=== PATIENT | female | born 1985 | race African-American/Black ===

== ENCOUNTER 2016-08-11 15:36 | Emergency (ER) | payer MEDICAID ==
[~2016-08-11] VITALS: Ht 170.2 cm; Wt 80.0 kg
[~2016-08-11 15:36] MED LIST: ADVA100A; AZIT250T74 PO; CLIN150 PO; MONT10TA2 PO; NAPR-576 PO; PRED20 PO; VIST50CA PO; Z.0.BCPILL
[2016-08-11 15:50] VITALS: BP 143/65; PULSE 68; RESP 14; TEMP 98.1; O2SAT 98
[2016-08-11] MEDS ORDERED: ADVA100A INH (16:20)
[2016-08-11] MEDS ORDERED: MONT10TA2 PO (16:20)
--- NOTE | 2016-08-11 16:47 | PD ---
HPI Chief Complaint: Respiratory Symptoms Time Seen by Provider: 16:43 Travel History International Travel<30 days: No Contact w/Intl Traveler<30days: No Traveled to known affect area: No History of Present Illness HPI 31-year-old female that presents to the ED for evaluation of left-sided chest discomfort with shortness of breath and history of asthma. Per patient about 2 weeks ago she was told by her doctor to discontinue her medications to help with what appears to be some side effects of the medications. Patient is to take Advair, albuterol inhaler and nebulizer. Per patient ever since the change in climate for the past 2 days she's been having some more shortness of breath, wheezing, left sided discomfort. Per patient she is concerned that she might have pneumonia vs her asthma. She denies any radiation of the discomfort. Per patient gets worse with cough. She has no allergies to medication. Denies any history of heart disease. Denies smoking. Denies any abdominal pain. Nausea or vomiting. No fevers chills or sweats. No sick contacts. No recent travel. No allergies to medication. PFSH Past Medical History Asthma: Yes Autoimmune Disease: No Anxiety: No Depression: No Cancer: No Cardiovascular Problems: No Diabetes: No Diminished Hearing: Yes Endocrine: No Genitourinary: No Immune Disorder: No Musculoskeletal: No Neurologic: No Psychiatric: No Reproductive: No Respiratory: Yes (ASTHMA) Thyroid Disease: No ?: Not Past Surgical History Other Surgery: Yes (BREAST BIOPSY) Family History Family Hypercholesterolemia: Yes Social History Alcohol Use: Yes (OCCASIONALLY) Tobacco Use: No Substance Use: Yes (COCAINE,) Allergies-Medications (Allergen,Severity, Reaction): Coded Allergies: No Known Allergies (Verified , 08/11/16) Reported Meds & Prescriptions Reported Meds & Active Scripts Active Reported Singulair (Montelukast Sodium) 10 Mg Tab 10 Mg PO HS Advair Diskus Inh (Fluticasone-Salmeterol Inh) 100-50 Mcg/Blist Aer 1 Puff INH BID Rinse mouth after use. Review of Systems Except as stated in HPI: all other systems reviewed are Neg Physical Exam Narrative GENERAL: SKIN: Warm and dry. HEAD: Atraumatic. Normocephalic. EYES: Pupils equal and round. No scleral icterus. No injection or drainage. ENT: No nasal bleeding or discharge. Mucous membranes pink and moist. Tongue is midline. No blood deviation. TMs are clear with no sign of infection or perforation. No mastoid tenderness. No lymphadenopathy. No meningeal signs noted. NECK: Trachea midline. No JVD. CARDIOVASCULAR: Regular rate and rhythm. No obvious murmurs, history, S4. Chest pain is not reproducible with touch. RESPIRATORY: No accessory muscle use. Clear to auscultation. Breath sounds equal bilaterally. GASTROINTESTINAL: Abdomen soft, non-tender, nondistended. Hepatic and splenic margins not palpable. MUSCULOSKELETAL: Extremities without clubbing, cyanosis, or edema. No obvious deformities. NEUROLOGICAL: Awake and alert. No obvious cranial nerve deficits. Motor grossly within normal limits. Five out of 5 muscle strength in the arms and legs. Normal speech. PSYCHIATRIC: Appropriate mood and affect; insight and judgment normal. Data Data Last Documented VS Vital Signs Date Time Temp Pulse Resp B/P Pulse Ox O2 Delivery O2 Flow Rate FiO2 08/11/16 15:50 98.1 68 14 143/65 98 Orders Chest, Single Ap (08/11/16 ) [facility] Medical Decision Making Medical Screen Exam Complete: Yes Emergency Medical Condition: Yes Medical Record Reviewed: Yes Interpretation(s) CXR negative Differential Diagnosis Asthma versus pneumonia versus pleurisy versus bronchitis Narrative Course 31-year-old female that presents to the ED for evaluation of left-sided chest discomfort with possible asthma. Patient was properly examined and was found to have signs and symptoms which appear to be more consistent with asthma exacerbation versus pneumonia versus pleurisy. Patient was recently discontinued most of her asthma medications by her doctor likely secondary to side effects from medication as patient cannot really tell me why. Vitals are within normal limits. Physical exam is reassuring that she does have some mild wheezing on exam. Recommendations to the chest x-ray to assess any pneumonia. Chest x-ray showed no sign of acute disease. Patient was reassured. On reassessment patient feels improved. Further questioning patient has pain when she takes a deep breath. This is likely pleurisy. I will treat patient with prednisone. Per patient she is going to pick up worker her prescriptions for inhalers as apparent rashes getting some today that were prescribed by her doctor. I will give patient a prescription for azithromycin only to cover for bacterial infection although this appears to be less likely. I recommended to the patient to hold off on the azithromycin unless she develops more cough and runny nose with fevers. She agrees with the plan. She was instructed that if anything worsens she is to come back. All questions were answered to the best of my ability. See ED worsening symptoms. Follow with PCP. Diagnosis Primary Impression: Pleurisy Additional Impression: Asthma Qualified Code: J45.20 - Mild intermittent asthma without complication Patient Instructions: General Instructions Additional Instructions: Motrin and Tylenol for pain and fever. You can use [id number] antihistamine as well as well as Mucinex as needed for runny nose and congestion. Cough drops for cough as needed. Drink plenty of fluids. Follow-up with PCP. See ED for worsening symptoms. Med/Other Pt SpecificInfo: Prescription(s) given Scripts Azithromycin 250 Mg [id number] Mg PO DIRECTED #6 TAB Take 2 tabs (500 mg) on day 1 then 1 tab daily x 4 days. Prov:Darcie Vences MD 08/11/16 Prednisone 20 Mg Tab20 Mg PO BID #10 TAB Prov:Darcie Vences MD 08/11/16 Disposition: 01 DISCHARGE HOME Condition: Stable Yves Farmer Aug 11, 2016 16:47
--- NOTE | 2016-08-11 16:55 | RADRPT ---
EXAM DATE/TIME: 08/11/2016 16:41 [facility] COMPARISON: CHEST SINGLE AP, December 09, 2014, 5:15. INDICATIONS : Chest pain. MEDICAL HISTORY : Asthma SURGICAL HISTORY : Breast biopsy ENCOUNTER: Initial ACUITY: 1 day PAIN SCORE: 0/10 LOCATION: Bilateral chest FINDINGS: A single view of the chest demonstrates the lungs to be symmetrically aerated without evidence of mas s, infiltrate or effusion. The cardiomediastinal contours are unremarkable. Osseous structures are intact. CONCLUSION: No acute disease. Earl Mccoy MD FACR on August 11, 2016 at 16:53 Board Certified Radiologist. This report was verified electronically.
[2016-08-11] MEDS ORDERED: AZIT250T3 PO (17:02)
[2016-08-11] MEDS ORDERED: PRED20 PO (17:02)
== END 2016-08-11 17:23 | disposition home or self-care (01) ==
LOC: NETRI 15:36
DX: J45.20 Mild intermittent asthma, uncomplicated (principal)
CPT/HCPCS: 71010; 99284

== ENCOUNTER 2016-08-18 09:15 | Emergency (ER) | payer MEDICAID ==
[~2016-08-18] VITALS: Ht 170.2 cm; Wt 80.0 kg
[~2016-08-18 09:15] MED LIST changes: -ADVA100A; +ADVA100A INH; +AZIT250T3 PO; -AZIT250T74 PO; -CLIN150 PO; -NAPR-576 PO; -VIST50CA PO; -Z.0.BCPILL
[2016-08-18 09:17] VITALS: BP 160/84; PULSE 82; RESP 20; TEMP 98.1; O2SAT 99
[2016-08-18] MEDS ORDERED: SODIUM CHLORIDE 0.9% FLUSH 5 ML FLUSH IVF PRN (10:00)
[2016-08-18] MEDS ORDERED: SODIUM CHLOR 0.9% 1000 ML INJ 1,000 ML IV ONE (10:00)
--- NOTE | 2016-08-18 10:02 | PD ---
HPI Chief Complaint: Dizziness Time Seen by Provider: 09:51 Travel History International Travel<30 days: No Contact w/Intl Traveler<30days: No Traveled to known affect area: No History of Present Illness HPI 31-year-old female with history of asthma, blindness, here for evaluation of left-sided chest discomfort, headache, and dizziness. Patient was seen here about a week ago for left-sided chest discomfort and was diagnosed with pleurisy , discharged home with a course of prednisone which helped her discomfort. She describes as sharpness/heaviness to her left chest. No history of cardiac disease. No history of DVT or PE. She is also complaining of a headache which she has had for last 2 weeks, states that she usually has headaches, however this one feels slightly different. Headache is associated with lightheadedness. No fevers or chills. No trauma. Pain is gradual in onset, located on her superior scalp, described as a pressure. No neck pain or stiffness. PFSH Past Medical History Asthma: Yes Autoimmune Disease: No Anxiety: No Depression: No Cancer: No Cardiovascular Problems: No Diabetes: No Diminished Hearing: Yes Endocrine: No Genitourinary: No Immune Disorder: No Musculoskeletal: No Neurologic: No Psychiatric: No Reproductive: No Respiratory: Yes (ASTHMA) Pneumonia: Yes (2014) Thyroid Disease: No ?: Unknown LMP: 09/06/15 bc of depo : 1 Para: 0 : 1 Past Surgical History Other Surgery: Yes (BREAST BIOPSY) Family History Family Hypercholesterolemia: Yes Social History Alcohol Use: Yes (OCCASIONALLY) Tobacco Use: No Substance Use: Yes (hx COCAINE,) Allergies-Medications (Allergen,Severity, Reaction): Coded Allergies: No Known Allergies (Verified , 08/11/16) Reported Meds & Prescriptions Reported Meds & Active Scripts Active Azithromycin 250 Mg Tab 250 Mg PO DIRECTED Take 2 tabs (500 mg) on day 1 then 1 tab daily x 4 days. Prednisone 20 Mg Tab 20 Mg PO BID Reported Singulair (Montelukast Sodium) 10 Mg Tab 10 Mg PO HS Advair Diskus Inh (Fluticasone-Salmeterol Inh) 100-50 Mcg/Blist Aer 1 Puff INH BID Rinse mouth after use. Review of Systems Except as stated in HPI: all other systems reviewed are Neg Physical Exam Narrative GENERAL: Pleasant, well-developed, well-nourished, well-appearing, comfortable, no acute distress. SKIN: Warm and dry. No rash. HEAD: Atraumatic. Normocephalic. EYES: No scleral icterus. No injection or drainage. ENT: No nasal bleeding or discharge. Mucous membranes pink and moist. NECK: Trachea midline. No JVD. No nuchal rigidity. CARDIOVASCULAR: Regular rate and rhythm. No murmur appreciated. RESPIRATORY: No accessory muscle use. Clear to auscultation. Breath sounds equal bilaterally. GASTROINTESTINAL: Abdomen soft, non-tender, nondistended. MUSCULOSKELETAL: No obvious deformities. No clubbing. No cyanosis. No edema. NEUROLOGICAL: Awake and alert. No obvious cranial nerve deficits. Motor grossly within normal limits. Normal speech. PSYCHIATRIC: Appropriate mood and affect; insight and judgment normal. Data Data Last Documented VS Vital Signs Date Time Temp Pulse Resp B/P Pulse Ox O2 Delivery O2 Flow Rate FiO2 08/18/16 10:30 98 Room Air 08/18/16 09:17 98.1 82 20 160/84 Orders Complete Blood Count With Diff (08/18/16 09:57) Comprehensive Metabolic Panel (08/18/16 09:57) Act Partial Throm Time (Ptt) (08/18/16 09:57) Prothrombin Time / Inr (Pt) (08/18/16 09:57) Ckmb (Isoenzyme) Profile (08/18/16 09:57) Troponin I (08/18/16 09:57) Urinalysis - C+S If Indicated (08/18/16 09:57) Influenzae A/B Antigen (08/18/16 09:57) Iv Access Insert/Monitor (08/18/16 09:57) Electrocardiogram (08/18/16 09:57) Ecg Monitoring (08/18/16 09:57) Oximetry (08/18/16 09:57) Oxygen Administration (08/18/16 09:57) Chest, Single Ap (08/18/16 09:57) Ct Pulmonary Angiogram (08/18/16 09:57) Sodium Chloride 0.9% Flush (Ns Flush) (08/18/16 10:00) Ct Brain W/O Iv Contrast(Rout) (08/18/16 ) Beta Hcg (Quant/Titer) (08/18/16 09:57) Sodium Chlor 0.9% 1000 Ml Inj (Ns 1000 M (08/18/16 10:00) Ed Urine Pregnancytest Poc (08/18/16 10:39) Iohexol 350 Inj (Omnipaque 350 Inj) (08/18/16 11:50) Ketorolac Inj (Toradol Inj) (08/18/16 12:15) Metoclopramide Inj (Reglan Inj) (08/18/16 12:15) Labs Laboratory Tests Test 08/18/16 08/18/16 10:10 10:30 White Blood Count 10.3 TH/MM3 Red Blood Count 4.65 MIL/MM3 Hemoglobin 13.9 GM/DL Hematocrit 42.2 % Mean Corpuscular Volume 90.7 FL Mean Corpuscular Hemoglobin 29.8 PG Mean Corpuscular Hemoglobin 32.9 % Concent Red Cell Distribution Width 14.0 % Platelet Count 243 TH/MM3 Mean Platelet Volume 9.2 FL Neutrophils (%) (Auto) 57.8 % Lymphocytes (%) (Auto) 32.3 % Monocytes (%) (Auto) 8.1 % Eosinophils (%) (Auto) 1.4 % Basophils (%) (Auto) 0.4 % Neutrophils # (Auto) 6.0 TH/MM3 Lymphocytes # (Auto) 3.3 TH/MM3 Monocytes # (Auto) 0.8 TH/MM3 Eosinophils # (Auto) 0.1 TH/MM3 Basophils # (Auto) 0.0 TH/MM3 CBC Comment DIFF FINAL Differential Comment Prothrombin Time 10.8 SEC Prothromb Time International 1.0 RATIO Ratio Activated Partial 29.2 SEC Thromboplast Time Sodium Level 141 MEQ/L Potassium Level 3.7 MEQ/L Chloride Level 107 MEQ/L Carbon Dioxide Level 27.4 MEQ/L Anion Gap 7 MEQ/L Blood Urea Nitrogen 14 MG/DL Creatinine 0.95 MG/DL Estimat Glomerular Filtration 69 ML/MIN Rate Random Glucose 107 MG/DL Calcium Level 9.0 MG/DL Total Bilirubin 0.2 MG/DL Aspartate Amino Transf 11 U/L (AST/SGOT) Alanine Aminotransferase 27 U/L (ALT/SGPT) Alkaline Phosphatase 84 U/L Total Creatine Kinase 55 U/L Troponin I LESS THAN 0.02 NG/ML Total Protein 7.6 GM/DL Albumin 3.6 GM/DL Human Chorionic Gonadotropin, LESS THAN 1 Quant MIU/ML Urine Color LIGHT-YELLOW Urine Turbidity CLEAR Urine pH 6.5 Urine Specific [place] 1.005 Urine Protein NEG mg/dL Urine Glucose (UA) NEG mg/dL Urine Ketones NEG mg/dL Urine Occult Blood NEG Urine Nitrite NEG Urine Bilirubin NEG Urine Urobilinogen LESS THAN 2.0 MG/DL Urine Leukocyte Esterase NEG Urine RBC LESS THAN 1 /hpf Urine WBC LESS THAN 1 /hpf Microscopic Urinalysis Comment CULT NOT INDICATED MDM Medical Decision Making Medical Screen Exam Complete: Yes Emergency Medical Condition: Yes Medical Record Reviewed: Yes Interpretation(s) EKG: Sinus, rate 76, normal axis, normal intervals, no acute ischemic normality. Differential Diagnosis ACS, pneumothorax, pericarditis, PE, pneumonia, pleurisy, musculoskeletal pain, tension headache, migraine headache, cluster headache, intracranial abnormality , meningitis/encephalitis/SAH unlikely Narrative Course Vital signs show heart rate 82, blood pressure 160/84, pulse ox 99% on room air , oral temp of 98.1F. CBC is unremarkable. CMP is unremarkable. Cardiac enzymes are negative. Beta hCG is negative. UA is not suggestive of UTI. CT head read as normal exam. CT pulmonary angiogram read as normal exam. Chest x-ray shows no disease. The patient was given IV fluids, Reglan, and Toradol and is feeling a lot better. She would like to go home. I do not believe her chest pain is cardiac in nature. I do not believe she has a serious cause for her headache such as subarachnoid hemorrhage, meningitis, or encephalitis. She is stable for discharge home with outpatient follow-up with her primary care physician this week. She was informed on when to return to the emergency department. She verbalizes understanding and agreement with plan. Diagnosis Primary Impression: Atypical chest pain Additional Impression: Headache Qualified Code: R51 - Nonintractable headache, unspecified chronicity pattern , unspecified headache type Referrals: Primary Care Physician 3 days Additional Instructions: Follow-up with your primary care physician this week. Return to the emergency department for worsening symptoms or any other concerns. Disposition: 01 DISCHARGE HOME Condition: Stable Mark Millan MD Aug 18, 2016 10:02
[2016-08-18 10:37] LABS: BASOPHIL % 0.4 % (0.0-2.0); EOSINOPHIL # 0.1 TH/MM3 (0-0.4); EOSINOPHIL % 1.4 % (0.0-4.0); HEMATOCRIT 42.2 % (35.0-46.0); HEMO FLAGS DIFF FINAL; LYMPH % 32.3 % (9.0-44.0); LYMPHOCYTE # 3.3 TH/MM3 (1.0-4.8); MEAN CELL VOLUME 90.7 FL (80.0-100.0); MEAN CORPUSCULAR HEMOGLOBIN 29.8 PG (27.0-34.0); MEAN CORPUSCULAR HGB CONC 32.9 % (32.0-36.0); MONO % 8.1 % (0.0-8.0); NEUT % 57.8 % (16.0-70.0); PLATELET COUNT 243 TH/MM3 (150-450); RED BLOOD COUNT 4.65 MIL/MM3 (4.00-5.30); WHITE BLOOD COUNT 10.3 TH/MM3 (4.0-11.0)
[2016-08-18 10:40] LABS: APTT (PATIENT) 29.2 SEC (24.3-30.1); PROTHROMBIN TIME - PATIENT 10.8 SEC (9.8-11.6)
[2016-08-18 10:47] LABS: ANION GAP 7 MEQ/L (5-15); AST (GOT) 11 U/L (15-37); BICARBONATE 27.4 MEQ/L (21.0-32.0); BLOOD UREA NITROGEN 14 MG/DL (7-18); CHLORIDE 107 MEQ/L (98-107); GLOMERULAR FILTRATION RATE 69 ML/MIN (>89); POTASSIUM 3.7 MEQ/L (3.5-5.1); SODIUM (NA) 141 MEQ/L (136-145)
[2016-08-18 10:47] LABS: BLOOD, URINE NEG (NEG); GLUCOSE,URINE NEG (NEG); KETONE, URINE NEG (NEG); NITRITE,URINE NEG (NEG); PH, URINE 6.5 (5.0-8.5); URINE COLOR LIGHT-YELLOW (YELLW/STRAW)
[2016-08-18 10:49] LABS: COMMENT (UR) CULT NOT INDICATED; CULTURE IF INDICATED CULT NOT INDICATED
[2016-08-18 10:52] LABS: ALKALINE PHOSPHATASE 84 U/L (45-117); ALT (GPT) 27 U/L (10-53); BETA HCG QUANT LESS THAN 1 MIU/ML (0-5); TOTAL BILIRUBIN ADULT 0.2 MG/DL (0.2-1.0)
[2016-08-18 10:53] LABS: CREATINE KINASE 55 U/L (26-192)
--- NOTE | 2016-08-18 11:06 | RADRPT ---
EXAM DATE/TIME: 08/18/2016 10:36 [facility] COMPARISON: CHEST SINGLE AP, August 11, 2016, 16:41. INDICATIONS : Dizziness, headache, chest tightness midsternal radiating into left chest wall. MEDICAL HISTORY : None. SURGICAL HISTORY : None. ENCOUNTER: Initial ACUITY: 1 day PAIN SCORE: 7/10 LOCATION: Left chest FINDINGS: A single view of the chest demonstrates the lungs to be symmetrically aerated without evidence of mas s, infiltrate or effusion. The cardiomediastinal contours are unremarkable. Osseous structures are intact. CONCLUSION: No acute disease. Isaac Villaseñor MD on August 18, 2016 at 11:05 Board Certified Radiologist. This report was verified electronically.
--- NOTE | 2016-08-18 11:48 | RADRPT ---
EXAM DATE/TIME: 08/18/2016 11:25 [facility] COMPARISON: No previous studies available for comparison. INDICATIONS : Dizziness. RADIATION DOSE: 56.35 CTDIvol (mGy) MEDICAL HISTORY : Asthma SURGICAL HISTORY : None. ENCOUNTER: Initial ACUITY: 1 day PAIN SCALE: 4/10 LOCATION: cranial TECHNIQUE: Multiple contiguous axial images were obtained of the head. Using automated exposure control and adj ustment of the mA and/or kV according to patient size, radiation dose was kept as low as reasonably a chievable to obtain optimal diagnostic quality images. FINDINGS: CEREBRUM: The ventricles are normal for age. No evidence of midline shift, mass lesion, hemorrhage or acute in farction. No extra-axial fluid collections are seen. POSTERIOR FOSSA: The cerebellum and brainstem are intact. The 4th ventricle is midline. The cerebellopontine angle i s unremarkable. EXTRACRANIAL: The visualized portion of the orbits is intact. SKULL: The calvaria is intact. No evidence of skull fracture. CONCLUSION: Normal examination. Deisy Hyde MD on August 18, 2016 at 11:46 Board Certified Radiologist. This report was verified electronically.
[2016-08-18] MEDS ORDERED: IOHEXOL 350 MG/ML 10 ML VIAL (for RAD DIAG) IV ONE (11:50)
--- NOTE | 2016-08-18 11:56 | RADRPT ---
EXAM DATE/TIME: 08/18/2016 11:33 [facility] COMPARISON: No previous studies available for comparison. INDICATIONS : Left sided chest pain. IV CONTRAST: 75 cc Omnipaque 350 (iohexol) IV RADIATION DOSE: 17.19 CTDIvol (mGy) MEDICAL HISTORY : Asthma SURGICAL HISTORY : None. ENCOUNTER: Initial ACUITY: 1 day PAIN SCALE: 5/10 LOCATION: Left chest TECHNIQUE: Volumetric scanning of the chest was performed using a pulmonary embolism protocol MIP images were re constructed. Using automated exposure control and adjustment of the mA and/or kV according to patien t size, radiation dose was kept as low as reasonably achievable to obtain optimal diagnostic quality images. FINDINGS: PULMONARY ARTERIES: No filling defects are seen in the pulmonary arteries through the segmental level. LUNGS: There is no consolidation or pneumothorax . No concerning pulmonary nodule is visualized. PLEURAE: There is no pleural thickening or pleural effusion. MEDIASTINUM: There is good visualization of the great vessels of the middle mediastinum. No evidence of mediastin al or hilar adenopathy/mass. MUSCULOSKELETAL: Within normal limits for patient age. MISCELLANEOUS: The visualized upper abdominal organs demonstrate no acute abnormality. CONCLUSION: Normal examination. Deisy Hyde MD on August 18, 2016 at 11:54 Board Certified Radiologist. This report was verified electronically.
[2016-08-18] MEDS ORDERED: METOCLOPRAMIDE HCL 10 MG/2 ML VIAL IV PUSH ONE (12:15)
[2016-08-18] MEDS ORDERED: KETOROLAC TROMETHAMINE 30 MG/ML (IVP) VIAL IV PUSH ONE (12:15)
[2016-08-18 13:42] VITALS: RESP 20
--- NOTE | 2016-08-19 15:18 | EKG ---
Date Performed: 08/18/2016 Time Performed: 10:54:33 PTAGE: 31 years EKG: Sinus rhythm Rate has slowed compared to prior tracing Otherwise largely unchanged NORMAL ECG PREVIOUS TRACING : 12/09/2014 03.44 DOCTOR: Dalton Vidal Interpretating Date/Time 08/19/2016 15:16:16
== END 2016-08-18 14:12 | disposition home or self-care (01) ==
LOC: NEPC 09:15
DX: R07.89 Other chest pain (principal); R51 Headache; R42 Dizziness and giddiness; J45.909 Unspecified asthma, uncomplicated
CPT/HCPCS: 70450; 71010; 71275; 80053; 81001; 82550; 84484; 84702; 84703; 85025; 85610; 85730; 87804; 93005; 96361; 96374; 96375; 99285; J1885; J2765; J7030; Q9967

== ENCOUNTER 2017-01-13 18:01 | Emergency (ER) | payer MEDICAID ==
[2017-01-13 18:04] VITALS: BP 133/80; PULSE 86; RESP 20; TEMP 98.6; O2SAT 99
--- NOTE | 2017-01-13 18:19 | PD ---
HPI . Headache since Sunday, chest pressure since taking Excedrin today Chief Complaint: Cardiac Complaint Time Seen by Provider: 18:19 Travel History International Travel<30 days: No Contact w/Intl Traveler<30days: No Traveled to known affect area: No History of Present Illness HPI 31-year-old female with history of legal blindness secondary optic nerve atrophy , asthma, allergies, history of migraines here with complaints of pressure in the frontal part of her head for the past 4 days. She also reports some chest pressure for a day since starting Excedrin. Patient describes the pain as substernal. It is reproducible with palpation. She rates the headache at 7/10 , chest pain is rated a 6/10 there is no further radiation elsewhere. She does admit to facial pressure. She tells me the headache feels like pressure in the front of her head. Nausea, vomiting or diaphoresis. She has no shortness of breath. She tried taking a breathing treatment at home and that did not help her symptoms. PFSH Past Medical History Asthma: Yes Autoimmune Disease: No Anxiety: No Depression: No Cancer: No Cardiovascular Problems: No Diabetes: No Diminished Hearing: Yes Endocrine: No Genitourinary: No Immune Disorder: No Musculoskeletal: No Neurologic: No Psychiatric: No Reproductive: No Respiratory: Yes Pneumonia: Yes (2014) Thyroid Disease: No : 1 Para: 0 : 1 Past Surgical History Other Surgery: Yes (BREAST BIOPSY) Family History Family Hypercholesterolemia: Yes Social History Alcohol Use: Yes (OCCASIONALLY) Tobacco Use: No Substance Use: Yes (hx COCAINE,) Allergies-Medications (Allergen,Severity, Reaction): Coded Allergies: No Known Allergies (Verified , 01/13/17) Reported Meds & Prescriptions Reported Meds & Active Scripts Active Flonase Nasal Linn (Fluticasone Nasal Linn) 50 Mcg/Act Linn 50 Mcg EACH NARE BID Zithromax Z-Christian (Azithromycin) 250 Mg Dspk 250 Mg PO DIRECTED 500 MG (2 tabs) day 1, then 1 tab days 2-5. Reported Proair Hfa 8.5 GM Inh (Albuterol Sulfate) 90 Mcg/Act Aer 1 Puff INH Q4H PRN 108 mcg/actuation Qvar Inh (Beclomethasone Dipropionate) 40 Mcg/Act Aero 1 Puff INH BID Albuterol Neb (Albuterol Sulfate) 1.25 Mg/3 Ml Neb 1.25 Mg NEB Q4HR NEB PRN Review of Systems General / Constitutional: No: Fever Eyes: No: Visual changes HENT: Positive: Headaches, Congestion, Other (facial pressure ) Cardiovascular: No: Chest Pain or Discomfort Respiratory: No: Shortness of Breath Gastrointestinal: No: Abdominal Pain Genitourinary: No: Dysuria Musculoskeletal: No: Pain Skin: No Rash Neurologic: No: Weakness Psychiatric: No: Depression Endocrine: No: Polydipsia Hematologic/Lymphatic: No: Easy Bruising Physical Exam Narrative GENERAL: AAO x 3, no acute distress, Well-nourished, well-developed patient. SKIN: Warm and dry. No visible rashes or bruising. HEAD: Normocephalic and atraumatic. EYES: No scleral icterus. No injection or drainage. EOM intact, PERRLA ENT: No nasal drainage noted. Mucous membranes pink. Airway patent. TMs with bilateral effusions. Positive maxillary and frontal sinus tenderness. No oropharynx abnormality. NECK: Supple, trachea midline. No JVD. CARDIOVASCULAR: Regular rate and rhythm without murmurs, gallops, or rubs. RESPIRATORY: Breath sounds equal bilaterally. No accessory muscle use. No rhonchi or rales. GASTROINTESTINAL: Visual inspection normal EXTREMITIES: No cyanosis or edema. BACK: Nontender without obvious deformity. No CVA tenderness. NEURO: CN II-12 intact, soda dialyzer strength normal b/l, UE and LE 5/5, no focal deficits PSYCH: AAO x 3, normal affect. Data Data Last Documented VS Vital Signs Date Time Temp Pulse Resp B/P Pulse Ox O2 Delivery O2 Flow Rate FiO2 01/13/17 19:17 98 Room Air 01/13/17 19:17 79 18 121/74 01/13/17 18:04 98.6 Orders Electrocardiogram (01/13/17 18:19) Chest, Single Ap (01/13/17 ) [facility] Medical Decision Making Medical Screen Exam Complete: Yes Emergency Medical Condition: Yes Medical Record Reviewed: Yes Differential Diagnosis Sinusitis, sinus headache, costochondritis, less likely ACS Narrative Course 31-year-old female here with complaints of headache and chest pain. Examination was done and is unremarkable except for frontal maxillary sinus tenderness. There was also some bilateral effusions in her ears. She has reproducible chest pain on palpation. I think her headache is related to her sinus issues. She appears to have acute sinusitis. I do not believe this is ACS. This appears to be some atypical chest pain likely caused from irritation from coughing. Nonetheless I've ordered an EKG, which was reviewed by Dr. Ba and appears unremarkable. Chest x-ray also ordered to rule out any type of pneumonia. If chest x-ray is negative, I will provide her with some azithromycin as she has failed amoxicillin. I will also give her a trial of Flonase. She will need follow-up with her septic tank servicer. I have discussed her negative results. She was in agreement with the treatment plan. Patient verbalized understanding of instructions, questions were answered, and thanked me for their care. I advised them if their condition worsens, please return to the nearest emergency room for further care. Diagnosis Primary Impression: Acute sinusitis Qualified Code: J01.91 - Acute recurrent sinusitis, unspecified location Additional Impression: Atypical chest pain Patient Instructions: General Instructions Additional Instructions: Please return to emergency department if your symptoms return or worsen. Follow up with your primary care provider. Take medications as prescribed. Med/Other Pt SpecificInfo: Prescription(s) given Scripts Fluticasone Nasal Linn (Flonase Nasal Linn)50 Mcg/Act Spray50 Mcg EACH NARE BID #1 BOTTLE Ref 0 Prov:Wai Ba MD 01/13/17 Azithromycin (Zithromax Z-Christian)250 Mg [id number] Mg PO DIRECTED #1 DSPK 500 MG (2 tabs) day 1, then 1 tab days 2-5. Prov:Wai Ba MD 01/13/17 Disposition: 01 DISCHARGE HOME Condition: Stable Mei Arreaga Jan 13, 2017 18:19
[2017-01-13] MEDS ORDERED: BECL0.07 INH (18:21)
[2017-01-13] MEDS ORDERED: ALBU1.25 NEB (18:21)
[2017-01-13] MEDS ORDERED: ALBUAER3 INH (18:21)
[2017-01-13] MEDS ORDERED: FLUT1SPR5 EACH NARE (18:37)
[2017-01-13] MEDS ORDERED: ZITHTAB PO (18:37)
[2017-01-13 19:17] VITALS: BP 121/74; PULSE 79; RESP 18; O2SAT 98
--- NOTE | 2017-01-13 19:50 | RADRPT ---
EXAM DATE/TIME: 01/13/2017 19:24 [facility] COMPARISON: CHEST SINGLE AP, August 18, 2016, 10:36. INDICATIONS : Chest pain. MEDICAL HISTORY : Hx pneumonia. Asthma. SURGICAL HISTORY : None. ENCOUNTER: Initial ACUITY: 1 day PAIN SCORE: 6/10 LOCATION: chest FINDINGS: No significant change has occurred. A single view of the chest demonstrates the lungs to be symmetrically aerated without evidence of mas s, infiltrate or effusion. The cardiomediastinal contours are unremarkable. Osseous structures are intact. CONCLUSION: No acute disease. Joel West MD on January 13, 2017 at 19:47 Board Certified Radiologist. This report was verified electronically.
--- NOTE | 2017-01-14 09:38 | EKG ---
Date Performed: 01/13/2017 Time Performed: 18:32:14 PTAGE: 31 years EKG: Sinus rhythm MODERATE VOLTAGE CRITERIA FOR LVH, CONSIDER NORMAL VARIANT BORDERLINE ECG PREVIOUS TRACING : 08/18/2016 10.54 DOCTOR: Sha Moyer Interpretating Date/Time 01/14/2017 09:32:59
== END 2017-01-13 20:13 | disposition home or self-care (01) ==
LOC: NEPD 18:01
DX: R07.89 Other chest pain (principal); J01.90 Acute sinusitis, unspecified; J45.909 Unspecified asthma, uncomplicated; R94.31 Abnormal electrocardiogram [ECG] [EKG]
CPT/HCPCS: 71010; 93005; 99284

== ENCOUNTER 2017-03-05 20:27 | Emergency (ER) | payer MEDICAID ==
[~2017-03-05 20:27] MED LIST changes: -ADVA100A INH; +ALBU1.25 NEB; +ALBUAER3 INH; -AZIT250T3 PO; +BECL0.07 INH; +FLUT1SPR5 EACH NARE; -MONT10TA2 PO; -PRED20 PO; +ZITHTAB PO
[2017-03-05 20:30] VITALS: BP 151/89; PULSE 82; RESP 16; TEMP 98.7; O2SAT 99
[2017-03-05 23:55] VITALS: BP 122/89; PULSE 75; RESP 16; O2SAT 97
--- NOTE | 2017-03-06 00:01 | PD ---
HPI Chief Complaint: General Weakness Time Seen by Provider: 23:45 Travel History International Travel<30 days: No Contact w/Intl Traveler<30days: No Traveled to known affect area: No History of Present Illness HPI 31-year-old female complains of generalized malaise, lightheadedness, feeling cold chills and palpitation. Patient states that the symptoms started this morning. Patient states that she had intermittent palpitation today. Patient denies any chest pain or shortness of breath. Patient denies any coughing congestion. Patient has history of migraine and has some mild frontal headache today. Patient states that she has history of asthma and always has some mild shortness of breath. Patient states that no new shortness of breath today. Patient denies any abdominal pain. Patient denies any nausea vomiting diarrhea. Patient denies any fever. Patient denies any dysuria or frequency. Patient denies any vaginal discharge or bleeding. PFSH Past Medical History Asthma: Yes Autoimmune Disease: No Anxiety: No Depression: No Cancer: No Cardiovascular Problems: No Diabetes: No Diminished Hearing: Yes (hearing impaired bilaterally) Endocrine: No Genitourinary: No Immune Disorder: No Musculoskeletal: No Neurologic: No Psychiatric: No Reproductive: No Respiratory: Yes Pneumonia: Yes (2015) Thyroid Disease: No Influenza Vaccination: Yes ?: Not : 1 Para: 0 : 1 Past Surgical History Other Surgery: Yes (BREAST BIOPSY) Family History Family Hypercholesterolemia: Yes Social History Alcohol Use: Yes (OCCASIONALLY) Tobacco Use: No Substance Use: Yes (hx COCAINE,) Allergies-Medications (Allergen,Severity, Reaction): Coded Allergies: No Known Allergies (Verified , 01/13/17) Reported Meds & Prescriptions Reported Meds & Active Scripts Active Flonase Nasal [place] (Fluticasone Nasal [place]) 50 Mcg/Act [place] 50 Mcg EACH NARE BID Zithromax Z-Christian (Azithromycin) 250 Mg Dspk 250 Mg PO DIRECTED 500 MG (2 tabs) day 1, then 1 tab days 2-5. Reported Proair Hfa 8.5 GM Inh (Albuterol Sulfate) 90 Mcg/Act Aer 1 Puff INH Q4H PRN 108 mcg/actuation Qvar Inh (Beclomethasone Dipropionate) 40 Mcg/Act Aero 1 Puff INH BID Albuterol Neb (Albuterol Sulfate) 1.25 Mg/3 Ml Neb 1.25 Mg NEB Q4HR NEB PRN Review of Systems General / Constitutional: No: Fever Eyes: No: Visual changes HENT: Positive: Lightheadedness, No: Headaches Cardiovascular: No: Chest Pain or Discomfort Respiratory: No: Shortness of Breath Gastrointestinal: No: Abdominal Pain Genitourinary: No: Dysuria Musculoskeletal: No: Pain Skin: No Rash Neurologic: No: Weakness Psychiatric: No: Depression Endocrine: No: Polydipsia Hematologic/Lymphatic: No: Easy Bruising Physical Exam Narrative GENERAL: Well-nourished, well-developed patient. SKIN: Focused skin assessment warm/dry. HEAD: Normocephalic. EYES: No scleral icterus. No injection or drainage. NECK: Supple, trachea midline. No JVD or lymphadenopathy. CARDIOVASCULAR: Regular rate and rhythm without murmurs, gallops, or rubs. RESPIRATORY: Breath sounds equal bilaterally. No accessory muscle use. GASTROINTESTINAL: Abdomen soft, non-tender, nondistended. MUSCULOSKELETAL: No cyanosis, or edema. BACK: Nontender without obvious deformity. No CVA tenderness. Neurologic exam normal. Data Data Last Documented VS Vital Signs Date Time Temp Pulse Resp B/P Pulse Ox O2 Delivery O2 Flow Rate FiO2 03/05/17 23:55 75 16 122/89 97 Room Air 03/05/17 20:30 98.7 Orders Electrocardiogram (03/05/17 23:51) Complete Blood Count With Diff (03/05/17 23:51) Basic Metabolic Panel (Bmp) (03/05/17 23:51) Urinalysis - C+S If Indicated (03/05/17 23:51) Chest, Single Ap (03/05/17 23:51) Iv Access Insert/Monitor (03/05/17 23:51) Ecg Monitoring (03/05/17 23:51) Labs Laboratory Tests Test 03/06/17 03/06/17 00:10 00:12 White Blood Count 11.5 TH/MM3 Red Blood Count 4.37 MIL/MM3 Hemoglobin 12.8 GM/DL Hematocrit 39.7 % Mean Corpuscular Volume 90.9 FL Mean Corpuscular Hemoglobin 29.3 PG Mean Corpuscular Hemoglobin 32.2 % Concent Red Cell Distribution Width 13.6 % Platelet Count 238 TH/MM3 Mean Platelet Volume 9.9 FL Neutrophils (%) (Auto) 66.0 % Lymphocytes (%) (Auto) 24.9 % Monocytes (%) (Auto) 7.4 % Eosinophils (%) (Auto) 1.2 % Basophils (%) (Auto) 0.5 % Neutrophils # (Auto) 7.6 TH/MM3 Lymphocytes # (Auto) 2.9 TH/MM3 Monocytes # (Auto) 0.9 TH/MM3 Eosinophils # (Auto) 0.1 TH/MM3 Basophils # (Auto) 0.1 TH/MM3 CBC Comment DIFF FINAL Differential Comment Sodium Level 139 MEQ/L Potassium Level 3.6 MEQ/L Chloride Level 105 MEQ/L Carbon Dioxide Level 23.6 MEQ/L Anion Gap 10 MEQ/L Blood Urea Nitrogen 12 MG/DL Creatinine 0.64 MG/DL Estimat Glomerular Filtration 131 ML/MIN Rate Random Glucose 96 MG/DL Calcium Level 9.4 MG/DL Urine Color YELLOW Urine Turbidity HAZY Urine pH 6.0 Urine Specific [place] 1.033 Urine Protein TRACE mg/dL Urine Glucose (UA) NEG mg/dL Urine Ketones NEG mg/dL Urine Occult Blood TRACE Urine Nitrite NEG Urine Bilirubin NEG Urine Urobilinogen LESS THAN 2.0 MG/DL Urine Leukocyte Esterase NEG Urine RBC LESS THAN 1 /hpf Urine WBC 1 /hpf Urine Squamous Epithelial 1 /hpf Cells Urine Hyaline Casts 2 /lpf Urine Mucus FEW /lpf Microscopic Urinalysis Comment CULT NOT INDICATED MDM Medical Decision Making Medical Screen Exam Complete: Yes Emergency Medical Condition: Yes Interpretation(s) Last Impressions Chest X-Ray 03/05/17 2351 Signed Impressions: Service Date/Time: Sunday, March 05, 2017 23:53 - CONCLUSION: No acute disease. Macario Pelayo MD 1:09 AM. CBC within normal limit. BMP within normal limits. UA is negative. Differential Diagnosis Differential diagnosis including viral syndrome, bronchitis, pneumonia, UTI, sepsis. Narrative Course 31-year-old female feeling cold chills, lightheadedness, palpitation and generalized malaise. Diagnosis Primary Impression: Viral syndrome Patient Instructions: General Instructions Additional Instructions: Tylenol for headache. Follow-up with personal physician. Return if worse. Med/Other Pt SpecificInfo: No Change to Meds Disposition: 01 DISCHARGE HOME Condition: Stable Wai Ba MD Mar 06, 2017 00:01
[2017-03-06 00:36] LABS: AUTOMATED NEUTROPHIL # 7.6 TH/MM3 (1.8-7.7); BASOPHIL # 0.1 TH/MM3 (0-0.2); BASOPHIL % 0.5 % (0.0-2.0); EOSINOPHIL # 0.1 TH/MM3 (0-0.4); EOSINOPHIL % 1.2 % (0.0-4.0); HEMATOCRIT 39.7 % (35.0-46.0); HEMO FLAGS DIFF FINAL; LYMPH % 24.9 % (9.0-44.0); LYMPHOCYTE # 2.9 TH/MM3 (1.0-4.8); MEAN CELL VOLUME 90.9 FL (80.0-100.0); MEAN CORPUSCULAR HEMOGLOBIN 29.3 PG (27.0-34.0); MEAN CORPUSCULAR HGB CONC 32.2 % (32.0-36.0); MONO % 7.4 % (0.0-8.0); PLATELET COUNT 238 TH/MM3 (150-450); RED BLOOD COUNT 4.37 MIL/MM3 (4.00-5.30); RED CELL DISTRIBUTION WIDTH 13.6 % (11.6-17.2); WHITE BLOOD COUNT 11.5 TH/MM3 (4.0-11.0)
--- NOTE | 2017-03-06 00:59 | RADRPT ---
EXAM DATE/TIME: 03/05/2017 23:53 [facility] COMPARISON: CHEST SINGLE AP, January 13, 2017, 19:24. INDICATIONS : Shortness of breath. MEDICAL HISTORY : None. SURGICAL HISTORY : None. ENCOUNTER: Initial ACUITY: 1 day PAIN SCORE: 0/10 LOCATION: Bilateral chest FINDINGS: A single view of the chest demonstrates the lungs to be symmetrically aerated without evidence of mas s, infiltrate or effusion. The cardiomediastinal contours are unremarkable. Osseous structures are intact. CONCLUSION: No acute disease. Macario Pelayo MD on March 06, 2017 at 0:57 Board Certified Radiologist. This report was verified electronically.
[2017-03-06 01:04] LABS: BICARBONATE 23.6 MEQ/L (21.0-32.0); POTASSIUM 3.6 MEQ/L (3.5-5.1)
[2017-03-06 01:05] LABS: BLOOD, URINE TRACE (NEG); COMMENT (UR) CULT NOT INDICATED; CULTURE IF INDICATED CULT NOT INDICATED; GLUCOSE,URINE NEG (NEG); HYALINE CAST, URINE 2 /lpf (RARE); KETONE, URINE NEG (NEG); MUCUS URINE FEW /lpf (OCC); NITRITE,URINE NEG (NEG); SQUAMOUS EPITHELIAL CELL URINE 1 /hpf (0-5); URINE COLOR YELLOW (YELLW/STRAW)
[2017-03-06] MEDS ORDERED: MONT10TA2 PO (01:26)
--- NOTE | 2017-03-06 13:59 | EKG ---
Date Performed: 03/06/2017 Time Performed: 00:29:31 PTAGE: 31 years EKG: SINUS BRADYCARDIA Since previous tracing, no significant change noted BORDERLINE ECG PREVIOUS TRACING : 03/06/2017 00.29 DOCTOR: Dalton Vidal Interpretating Date/Time 03/06/2017 13:57:16
== END 2017-03-06 02:22 | disposition home or self-care (01) ==
LOC: NEPE 20:27
DX: B34.9 Viral infection, unspecified (principal); R94.31 Abnormal electrocardiogram [ECG] [EKG]; H91.93 Unspecified hearing loss, bilateral
CPT/HCPCS: 71010; 80048; 81001; 85025; 93005; 99285

== ENCOUNTER 2017-04-18 06:47 | Emergency (ER) | payer MEDICAID ==
[~2017-04-18] VITALS: Ht 170.2 cm; Wt 91.0 kg
[~2017-04-18 06:47] MED LIST changes: +MONT10TA2 PO; -ZITHTAB PO
[2017-04-18 06:50] VITALS: BP 133/86; PULSE 77; RESP 16; TEMP 98; O2SAT 100
--- NOTE | 2017-04-18 07:34 | PD ---
HPI . flu symptoms last week Chief Complaint: Cold / Flu Symptoms Time Seen by Provider: 07:33 Travel History International Travel<30 days: No Contact w/Intl Traveler<30days: No Traveled to known affect area: No History of Present Illness HPI 31-year-old female here with complaints of flulike symptoms. Patient tells me that last week she had some symptoms of the flu. She tells me that since approximately 2 days ago these have all subsided. She has a slight headache and took Excedrin, but still has the headache intermittently. She denies any fever or chills but she has no other complaints. PFSH Past Medical History Asthma: Yes Autoimmune Disease: No Anxiety: No Depression: No Cancer: No Cardiovascular Problems: No Diabetes: No Diminished Hearing: Yes (hearing impaired bilaterally) Endocrine: No Genitourinary: No Immune Disorder: No Musculoskeletal: No Neurologic: No Psychiatric: No Reproductive: No Respiratory: Yes Pneumonia: Yes Thyroid Disease: No Tetanus Vaccination: > 5 Years Influenza Vaccination: Yes ?: Not LMP: 03/25/17 : 1 Para: 0 : 1 Past Surgical History Other Surgery: Yes (BREAST BIOPSY) Family History Family Hypercholesterolemia: Yes Social History Alcohol Use: Yes (OCCASIONALLY) Tobacco Use: No Substance Use: Yes (hx COCAINE,) Allergies-Medications (Allergen,Severity, Reaction): Coded Allergies: No Known Allergies (Verified , 04/18/17) Reported Meds & Prescriptions Reported Meds & Active Scripts Active Reported Singulair (Montelukast Sodium) 10 Mg Tab 10 Mg PO HS Proair Hfa 8.5 GM Inh (Albuterol Sulfate) 90 Mcg/Act Aer 1 Puff INH Q4H PRN 108 mcg/actuation Qvar Inh (Beclomethasone Dipropionate) 40 Mcg/Act Aero 1 Puff INH BID Albuterol Neb (Albuterol Sulfate) 1.25 Mg/3 Ml Neb 1.25 Mg NEB Q4HR NEB PRN Review of Systems General / Constitutional: No: Fever Eyes: No: Visual changes HENT: Positive: Headaches Cardiovascular: No: Chest Pain or Discomfort Respiratory: No: Shortness of Breath Gastrointestinal: No: Abdominal Pain Genitourinary: No: Dysuria Musculoskeletal: No: Pain Skin: No Rash Neurologic: No: Weakness Psychiatric: No: Depression Endocrine: No: Polydipsia Hematologic/Lymphatic: No: Easy Bruising Physical Exam Narrative GENERAL: AAO x 3, no acute distress, Well-nourished, well-developed patient. SKIN: Warm and dry. No visible rashes or bruising. HEAD: Normocephalic and atraumatic. EYES: No scleral icterus. No injection or drainage. EOM intact, PERRLA ENT: No nasal drainage noted. Mucous membranes pink. Airway patent. Clear effusions bilaterally. NECK: Supple, trachea midline. No JVD. No lymphadenopathy CARDIOVASCULAR: Regular rate and rhythm without murmurs, gallops, or rubs. RESPIRATORY: Breath sounds equal bilaterally. No accessory muscle use. No rhonchi or rales. GASTROINTESTINAL: Visual inspection normal EXTREMITIES: No cyanosis or edema. BACK: No obvious deformity. NEURO: CN II-12 intact, PSYCH: AAO x 3, normal affect. Data Data Last Documented VS [facility] Medical Decision Making Medical Screen Exam Complete: Yes Emergency Medical Condition: No Medical Record Reviewed: Yes Differential Diagnosis Sinusitis, allergic rhinitis, less likely influenza Narrative Course A medical screening exam was performed: At the time of evaluation the presenting medical condition was determined not to be of an emergent nature. The patient was given the option of receiving additional care, but declined. Patient was given options for additional community resources from which to obtain care. The Patient Has Been advised to seek medical attention for their presenting complaint. The patient has been advised to return to the ER at any time if an emergent condition develops. I advised patient that this appears to be allergic rhinitis. She is to follow- up with primary care provider. Recommend she continue Flonase. Diagnosis Primary Impression: Encounter for medical screening examination Condition: Stable Mei Arreaga Apr 18, 2017 07:34
== END 2017-04-18 07:42 | disposition left against medical advice (07) ==
LOC: NEPD 06:47
DX: J11.1 Influenza due to unidentified influenza virus with other respiratory manifestations (principal)
CPT/HCPCS: 99281